=== PATIENT | male | born 1950 | race Caucasian/White ===

== ENCOUNTER 2016-10-17 13:03 | Emergency (ER) | payer BC, MEDICARE ==
[2016-10-17 13:28] VITALS: BP 158/84
--- NOTE | 2016-10-17 14:24 | UC ---
Skin Complaint HPI - HPI Summary HPI Summary: ONE WEEK AGO NOTICED PIMPLE ON BACK OF HEAD, PICKED IT; SLOWLY WARM RED TENDER AREA HAS SPREAD TO NECK SCALP AND LEFT CHEEK OF FACE. NO FEVER. NO BLISTERS. NO TICK BITES. - History of Current Complaint Chief Complaint: [facility] Time Seen by Provider: 10/17/16 13:25 Stated Complaint: BUMP W/SWELLING/REDNESS Hx Obtained From: Patient Onset/Duration: Gradual Onset, Lasting Days, Still Present Skin Exposure Onset/Duration: Days Ago Onset Severity: Mild Current Severity: Mild Pain Intensity: 2 Pain Scale Used: 0-10 Numeric Location: Discrete Character: Swelling, Redness, Painful Aggravating: Touch Alleviating: Nothing Associated Signs & Symptoms: Positive: Rash, Tenderness. Negative: Fever, Chills, Cough, Wheezing, Hoarseness, Throat Tightening, Syncope, Drainage, Bruising Related History: Trauma - PICKED PIMPLE ON LEFT OCCIPUT - Allergy/Home Medications Allergies/Adverse Reactions: Allergies Allergy/AdvReac Type Severity Reaction Status Date / Time Morphine Allergy Vomiting Verified 10/17/16 13:29 Pseudoephedrine Allergy Tachycardia Verified 03/29/14 23:24 [From [facility]] Review of Systems Constitutional: Negative Skin: Rash Eyes: Negative ENT: Negative Respiratory: Negative Cardiovascular: Negative Gastrointestinal: Negative Genitourinary: Negative Motor: Negative Neurovascular: Negative Musculoskeletal: Negative Neurological: Negative Psychological: Negative All Other Systems Reviewed And Are Negative: Yes PMH/Surg Hx/FS Hx/Imm Hx Previously Healthy: Yes - Surgical History Surgical History: Yes Surgery Procedure, Year, and Place: Prostatectomy - Family History Known Family History: Negative: Diabetes - Social History Occupation: Employed Full-time Lives: With Family Alcohol Use: Weekly Substance Use Type: None Smoking Status (MU): Never Smoked Tobacco Physical Exam Triage Information Reviewed: Yes Appearance: Well-Appearing, No Pain Distress, Well-Nourished Vital Signs: Initial Vital Signs Temp 98.3 F 10/17/16 13:23 Pulse 63 10/17/16 13:23 Resp 18 10/17/16 13:23 BP 158/84 10/17/16 13:23 Pulse Ox 99 10/17/16 13:23 Eye Exam: Normal ENT Exam: Normal ENT: Positive: Normal ENT inspection, Pharynx normal, TMs normal Dental Exam: Normal Neck: Positive: Supple, Nontender, No Lymphadenopathy, Other: - WARMTH ERRYTHEMA LEFT POSTERIOR NECK; NO BLISTERS. Negative: Nuchal Rigidity, Tenderness @, Enlarged Nodes @ Respiratory Exam: Normal Respiratory: Positive: Chest non-tender, Lungs clear, Normal breath sounds, No respiratory distress, No accessory muscle use Cardiovascular Exam: Normal Cardiovascular: Positive: RRR, No Murmur, Pulses Normal Abdominal Exam: Normal Musculoskeletal Exam: Normal Musculoskeletal: Positive: Strength Intact, ROM Intact Neurological Exam: Normal Psychological Exam: Normal Psychological: Positive: Normal Response To Family Skin: Positive: rashes Course/Dx - Differential Diagnoses - Skin Complaint Differential Diagnoses: Abscess, Cellulitis, Eczema, Tinea, Varicella Zoster - Diagnoses Provider Diagnoses: CELLULITIS Discharge - Discharge Plan Condition: Stable Disposition: HOME Prescriptions: Cephalexin CAP* [Keflex CAP*] 500 mg PO QID #40 cap Patient Education Materials: Cellulitis (ED) Referrals: [facility] [place] [facility] [Outside] Chele Booth MD [Primary Care Provider] - Images Head: 1 - ERRETHEMA WARMTH TENDERNESS 2 - ERRETHEMA WARMTH TENDERNESS 3 - ERRYTHEMA WARMTH TENDERNESS
== END 2016-10-17 14:10 | disposition home or self-care (01) ==
LOC: UCEAST 13:03
DX: L03.221 Cellulitis of neck (principal)
CPT/HCPCS: 99212; G0463

== ENCOUNTER 2016-11-01 14:17 | Emergency (ER) | payer MEDICARE ==
[2016-11-01 14:35] VITALS: BP 145/80
--- NOTE | 2016-11-01 15:49 | UC ---
Skin Complaint HPI - HPI Summary HPI Summary: Seen here 10/17/16 for redness, swelling, and painful lumps on/around L ear. Took 10 days of cephalexin QID and felt like it was gradually improving, but now is having deep pain and some new redness. Denies new fever. - History of Current Complaint Chief Complaint: [facility] Time Seen by Provider: 11/01/16 15:25 Stated Complaint: RED AREA ON NECK Hx Obtained From: Patient Onset/Duration: Gradual Onset, Lasting Weeks Timing: Constant Onset Severity: Moderate Current Severity: Mild Location: Discrete Character: Pain, Redness, Raised Aggravating: Touch Alleviating: Nothing Associated Signs & Symptoms: Positive: Rash Related History: Insect Bite/Sting - thought he had a mosquito or black fly bite originally - Allergy/Home Medications Allergies/Adverse Reactions: Allergies Allergy/AdvReac Type Severity Reaction Status Date / Time Morphine Allergy Vomiting Verified 11/01/16 14:35 Pseudoephedrine Allergy Tachycardia Verified 11/01/16 14:35 [From [facility]] Review of Systems Constitutional: Negative Skin: Other - redness Eyes: Negative ENT: Negative Respiratory: Negative Cardiovascular: Negative Gastrointestinal: Negative Genitourinary: Negative Motor: Negative Neurovascular: Negative Musculoskeletal: Negative Neurological: Negative Psychological: Negative All Other Systems Reviewed And Are Negative: Yes PMH/Surg Hx/FS Hx/Imm Hx Previously Healthy: Yes - Surgical History Surgical History: Yes Surgery Procedure, Year, and Place: Prostatectomy - Family History Known Family History: Negative: Diabetes - Social History Lives: Alone Alcohol Use: Weekly Substance Use Type: None Smoking Status (MU): Never Smoked Tobacco Physical Exam Triage Information Reviewed: Yes Appearance: Well-Appearing, No Pain Distress, Well-Nourished Vital Signs: Initial Vital Signs Temp 98.7 F 11/01/16 14:29 Pulse 93 11/01/16 14:29 Resp 18 11/01/16 14:29 BP 145/80 11/01/16 14:29 Pulse Ox 100 11/01/16 14:29 Vital Signs Reviewed: Yes Eye Exam: Normal Eyes: Positive: Conjunctiva Clear ENT Exam: Normal ENT: Positive: Normal ENT inspection, Hearing grossly normal, Pharynx normal, TMs normal Dental Exam: Normal Neck: Positive: Supple, Enlarged Nodes @ - L occipital Respiratory Exam: Normal Respiratory: Positive: Chest non-tender, Lungs clear, Normal breath sounds, No respiratory distress, No accessory muscle use Cardiovascular Exam: Normal Cardiovascular: Positive: RRR, No Murmur Musculoskeletal Exam: Normal Neurological Exam: Normal Neurological: Positive: Alert Psychological Exam: Normal Skin Exam: Other - no discrete visible redness on L neck where pt reports pain Course/Dx - Diagnoses Provider Diagnoses: recurrent cellulitis. vs. early localized lyme infection Discharge - Discharge Plan Condition: Stable Disposition: HOME Prescriptions: DOXYcycline CAP(*) [DOXYcycline 100MG CAP(*)] 100 mg PO BID #28 cap Patient Education Materials: Cellulitis (ED), Lyme Disease (ED) Referrals: Chele Booth MD [Primary Care Provider] - 2 Weeks Additional Instructions: Please see your primary care provider to discuss further testing and/or treatment.
[2016-11-06 14:10] LABS: Lyme Disease IgG Ab WB Uninterpretable (Negative)
== END 2016-11-01 16:00 | disposition home or self-care (01) ==
LOC: UCEAST 14:17
DX: R21 Rash and other nonspecific skin eruption (principal); Z88.5 Allergy status to narcotic agent
CPT/HCPCS: 86617; 86618; 99211; G0463

== ENCOUNTER 2018-04-20 07:56 | Emergency (ER) | payer MEDICARE ==
[2018-04-20] MEDS ORDERED: NS 0.9% 1000 ML* 1,000 ML IV ONE (08:08)
[2018-04-20] MEDS ORDERED: Ondansetron INJ* 2 MG/ML VIAL IV ONE (08:08)
[2018-04-20] MEDS ORDERED: Ketorolac INJ* 30 MG/ML 1 ML VIAL IV PUSH ONE (08:09)
[2018-04-20 08:30] LABS: ABS Basophils 0.1 10^3/ul (0-0.2); ABS Eosinophils 0.1 10^3/ul (0-0.6); ABS Lymphocytes 1.8 10^3/ul (1.0-4.8); ABS Monocytes 0.5 10^3/ul (0-0.8); ABS Neutrophils 6.3 10^3/ul (1.5-7.7); ABS Nucleated RBC 0 10^3/ul; Eosinophil % 0.7 %; Hematocrit 49 % (42-52); Hemoglobin 16.7 g/dl (14.0-18.0); Lymphocyte % 20.8 %; Mean Corpuscular HGB Conc 34 g/dl (31-36); Mean Corpuscular Hemoglobin 31 pg (27-31); Mean Corpuscular Volume 92 fL (80-94); Mean Platelet Volume 7.5 fL (7.4-10.4); Nucleated Red Blood Cells % 0; Platelet Count 285 10^3/ul (150-450); Red Blood Count 5.32 10^6/ul (4.00-5.40); Red Cell Distribution Width 14 % (10.5-15); White Blood Count 8.8 10^3/ul (3.5-10.8)
--- NOTE | 2018-04-20 08:35 | ED ---
Abdominal Pain/Male - HPI Summary HPI Summary: This patient is a 68 year old M presenting to [facility] with a chief complaint of LLQ pain that began this morning. He states the pain came on suddenly but it was mild, with a gradual increase. The patient rates the pain 8/10 in severity and describes it as dull. Patient reports nausea. Patient denies pain with BM, hematuria, dysuria, groin pain, back pain, testicular pain, and v/d. The patient was able to pass stool this morning. He does have a history of celiac disease and reports he has not been exposed to gluten recently. Denies GI history and surgery. Pt did have his prostate removed. - History of Current Complaint Chief Complaint: EDAbdPain Stated Complaint: SEVERE ABD PAIN Time Seen by Provider: 04/20/18 08:06 Hx Obtained From: Patient Onset/Duration: Lasting Hours, Still Present Timing: Constant Severity Initially: Severe Severity Currently: Severe Pain Intensity: 8 Pain Scale Used: 0-10 Numeric Location: Discrete At: LLQ Radiates: No Associated Signs And Symptoms: Positive: Negative - pain with BM, hematuria, dysuria, groin pain, back pain, testicular pain, and v/d, Other - nausea - Allergies/Home Medications Allergies/Adverse Reactions: Allergies Allergy/AdvReac Type Severity Reaction Status Date / Time morphine Allergy Vomiting Verified 04/20/18 08:03 pseudoephedrine Allergy Tachycardia Verified 04/20/18 08:03 PMH/Surg Hx/FS Hx/Imm Hx Endocrine/Hematology History: Denies: Hx Diabetes, Hx Thyroid Disease Cardiovascular History: Reports: Hx Pacemaker/ICD Denies: Hx Hypertension Respiratory History: Denies: Hx Asthma, Hx Chronic Obstructive Pulmonary Disease (COPD) GI History: Denies: Hx Ulcer Psychiatric History: Denies: Hx of Violent Episodes Against Others - Surgical History Surgery Procedure, Year, and Place: Prostatectomy - Immunization History Immunizations Up to Date: Yes Infectious Disease History: No Infectious Disease History: Denies: Hx Clostridium Difficile, Hx Hepatitis, Hx Human Immunodeficiency Virus (HIV), Hx of Known/Suspected MRSA, Hx Shingles, Hx Tuberculosis, Hx Known/ Suspected VRE, Hx Known/Suspected VRSA, History Other Infectious Disease, Traveled Outside the [place] in Last 30 Days - Family History Known Family History: Negative: Diabetes - Social History Lives: With Family Alcohol Use: Occasionally Substance Use Type: Reports: None Smoking Status (MU): Never Smoked Tobacco Review of Systems Negative: Fever Positive: Other - milana Gastrointestinal: Negative - pain with BM, back pain, and v/d Positive: Abdominal Pain, Nausea Genitourinary: Negative - hematuria, dysuria, groin pain, testicular pain, All Other Systems Reviewed And Are Negative: Yes Physical Exam - Summary Physical Exam Summary: Appearance: Well appearing, no pain distress Skin: warm, dry, reflects adequate perfusion Head/face: normal Eyes: EOMI, TIERRA ENT: mucous membranes moist Neck: supple, non-tender Respiratory: CTA, breath sounds present Cardiovascular: bradycardic but regular, pulses symmetrical Abdomen: LLQ it TTP without any palpable masses Bowel Sounds: present Musculoskeletal: normal, strength/ROM intact Neuro: normal, sensory motor intact, A&Ox3 Triage Information Reviewed: Yes Vital Signs On Initial Exam: Initial Vitals Temp Pulse Resp BP Pulse Ox 96.5 F 44 14 152/74 100 04/20/18 07:57 04/20/18 07:57 04/20/18 07:57 04/20/18 07:57 04/20/18 07:57 Vital Signs Reviewed: Yes Diagnostics - Vital Signs Vital Signs Temp Pulse Resp BP Pulse Ox 04/20/18 07:57 96.5 F 44 14 152/74 100 - Laboratory Result Diagrams: 04/20/18 08:16 04/20/18 08:17 Lab Statement: Any lab studies that have been ordered have been reviewed, and results considered in the medical decision making process. - CT CT ABD/Pelvis CT Interpretation Completed By: Radiologist Summary of CT Findings: There is a 0.4 cm calculus at the left ureteropelvic junction which may be. causing a mild left hydronephrosis. Low density lesions in the liver are nonspecific. They may represent cysts or hemangiomas. but are too small to accurately characterize. No other masses or fluid collections are noted. ED physician has reviewed this radiology report. - EKG 0813 Cardiac Rate: Bradycardia EKG Rhythm: Sinus Bradycardia - at [address] Segment: Normal Summary of EKG Findings: nml axis, nml ST Re-Evaluation - Re-Evaluation First Eval Re-Evaluation Time: 08:38 Change: Unchanged Comment: The patient is still bradycardic. He states he feels fine except for the LLQ pain. He denies any HTN medications use. Abdominal Pain Fem Course/Dx - Course Course Of Treatment: Patient with mild, fluctuating left-sided abdominal pain. CT scan was positive for proximal stone. Patient is comfortable here. He is be discharged with urology follow-up. Without any sign of infection. Treat symptomatically, follow-up with primary care/urology. Assessment/Plan: Nurse's note reviewed. - Diagnoses Differential Diagnosis/HQI/PQRI: Constipation, Diverticulitis, Ischemic Bowel, Urinary Tract Infection Provider Diagnoses: Renal colic, Ureterolithiasis Discharge - Sign-Out/Discharge Documenting (check all that apply): Patient Departure - Discharge Plan Condition: Improved Disposition: HOME Prescriptions: Naproxen [Naproxen 250 mg tab] 250 mg PO BID PRN #12 tablet PRN Reason: Pain Ondansetron ODT TAB* [Zofran 4 MG Odt TAB*] 4 mg PO Q8H PRN #12 tab.odt PRN Reason: Nausea Tamsulosin HCl [Flomax] 0.4 mg PO DAILY #5 cap.er.24h traMADol TAB* [Ultram*] 50 mg PO Q8H PRN #10 tab MDD 3 PRN Reason: more severe pain Patient Education Materials: Kidney Stones (ED) Referrals: Chele Booth MD [Primary Care Provider] - Rafael Kidd MD [Medical Doctor] - Additional Instructions: Hydrate really well with water. Return with uncontrolled pain, fever, worse, new symptoms or other concerns. Call your doctor first thing in the morning to schedule prompt follow-up. He may need to see a urologist if pain does not resolve. - Billing Disposition and Condition Condition: IMPROVED Disposition: Home - Attestation Statements Document Initiated by Mack: Yes Documenting Scribe: Brandon Kraft Provider For Whom Mack is Documenting (Include Credential): Silvino Walton MD Scribe Attestation: Brandon Middleton scribed for Silvino Walton MD on 04/20/18 at 1153. Scribe Documentation Reviewed: Yes Provider Attestation: The documentation as recorded by the Brandon guardado accurately reflects the service I personally performed and the decisions made by me, Silvino Walton MD Status of Scribe Document: Viewed
[2018-04-20 08:36] LABS: INR 0.97 (0.77-1.02)
[2018-04-20] MEDS ORDERED: Atropine SYRINGE* 0.1 MG/ML 10 ML SYRINGE (1 MG) IV PUSH ONE (08:39)
[2018-04-20 08:48] LABS: ALT 20 U/L (7-52); AST 18 U/L (13-39); Albumin 4.3 g/dL (3.2-5.2); Alkaline Phosphatase 46 U/L (34-104); Anion Gap 9 mmol/L (2-11); Blood Urea Nitrogen 14 mg/dL (6-24); C Reactive Protein < 1.00 mg/L (<8.01); CO2 Carbon Dioxide 26 mmol/L (22-32); Calcium 9.2 mg/dL (8.6-10.3); Chloride 106 mmol/L (101-111); EGFR Non-African American 68.2 (>60); Globulin 2.2 g/dL (2-4); Glucose 167 mg/dL (70-100); Potassium 3.7 mmol/L (3.5-5.0); Sodium 141 mmol/L (135-145); Total Protein 6.5 g/dL (6.4-8.9)
[2018-04-20] MEDS ORDERED: Iohexol 300* (CONTRAST) 10 ML SDV IV ONE (09:52)
[2018-04-20 11:32] VITALS: BP 138/69
[2018-04-20 11:42] LABS: Urine Appearance Clear; Urine Bacteria Absent (Absent); Urine Bilirubin Negative (Negative); Urine Blood 3+ (Negative); Urine Color Straw; Urine Glucose Negative (Negative); Urine Ketones Trace (Negative); Urine Nitrite Negative (Negative); Urine Protein Negative (Negative); Urine Red Blood Cell 2+(6-10/hpf) (Absent); Urine Specific Gravity 1.016 (1.010-1.030); Urine Urobilinogen Negative (Negative); Urine White Blood Cell Trace(0-5/hpf) (Absent)
== END 2018-04-20 11:31 | disposition home or self-care (01) ==
LOC: ED 07:56
DX: N20.1 Calculus of ureter (principal); N23 Unspecified renal colic; R00.1 Bradycardia, unspecified; Z90.79 Acquired absence of other genital organ(s); K90.0 Celiac disease; Z95.810 Presence of automatic (implantable) cardiac defibrillator
CPT/HCPCS: 36415; 74177; 80053; 81003; 81015; 83605; 83690; 83735; 84100; 84484; 85025; 85610; 86140; 87086; 93005; 96361; 96374; 96375; 99283; J0461; J1885; J2405; Q9967